=== PATIENT | male | born 1990 | race Two or more races ===

== ENCOUNTER 2018-12-27 21:53 | Emergency (ER) | payer SELFPAY ==
[2018-12-27] MEDS ORDERED: PROPARACAINE 0.5% 15 ML OPHT DROP OP ONE (22:25)
[2018-12-27] MEDS ORDERED: FLUORESCEIN SODIUM 1 MG STRIP OP ONE (22:25)
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
[2018-12-27] MEDS ORDERED: OFLOXACIN 0.3% SOLN PREPACK OPHT.BTL TAKEHOME ONE (23:17)
[2018-12-27] MEDS ORDERED: TIMOLOL 0.5% TAKEHOME ONE (23:30)
[2018-12-28] MEDS ORDERED: IOHEXOL 350mgI/ML (OMNIPAQUE) 150 ML BTL IV ONE (00:18)
[2018-12-28 00:20] LABS: PLATELET COUNT 214 10^3/uL (150-400)
[2018-12-28 01:36] VITALS: BP 119/63
== END 2018-12-28 01:36 | disposition home or self-care (01) ==
DX: S05.92XA Unspecified injury of left eye and orbit, initial encounter (principal); H57.89 Other specified disorders of eye and adnexa; Y04.8XXA Assault by other bodily force, initial encounter; Y92.9 Unspecified place or not applicable; Y93.9 Activity, unspecified; Y99.9 Unspecified external cause status
CPT/HCPCS: 82435-PO; 82565-PO; 82947-PO; 84132-PO; 84295-PO; 84520-PO; 85014-ER; Q9967